=== PATIENT | female | born 1990 | race Two or more races ===

== ENCOUNTER 2020-07-07 18:13 | Emergency (ER) | payer OTHER, SELFPAY ==
--- NOTE | ~2020-07-07 | XR_ITS ---
EXAMINATION: XR chest 2V EXAM DATE: 07/07/2020 18:39 INDICATION: Dyspnea X 3 days. TECHNIQUE: Frontal and lateral projections of the chest obtained and reviewed. There is no prior yohana dy for comparison. FINDINGS: The lungs are clear. There are no pleural effusions. The cardiomediastinal silhouette is within normal limits. There is no pneumothorax suspected. The bones and soft tissues are unremarkab le. IMPRESSION: Normal chest x-ray exam. Reviewed, dictated and finalized at location A. IMPRESSION: Normal chest x-ray exam.
[2020-07-07 18:16] VITALS: BP 111/62; PULSE 87; RESP 17; TEMP 36; O2SAT 100
--- NOTE | 2020-07-07 18:19 | ECG_ITS ---
Measurements Intervals [place] Rate: 92 P: 45 [place]: 141 QRS: 20 QRSD: 83 T: 12 QT: 336 QTc: 416 Interpretive Statements SINUS RHYTHM BASELINE ARTIFACT- I, II, III, AVL, AVF, V4-V6 NORMAL ECG Electronically Signed On 07-07-2020 20:01:39 CDT by Joe Navas D.O.
[2020-07-07 19:33] VITALS: O2SAT 100
[2020-07-07 19:34] VITALS: BP 95/56; PULSE 87; RESP 16; O2SAT 100
[2020-07-07 19:51] VITALS: BP 101/64
[2020-07-07 20:50] LABS: Basophils Percent Auto 0.3 % (0.2-1.2); Eosinophils Absolute Auto 0.1 K/mm3 (0-0.3); Eosinophils Percent Auto 1.5 % (0-4.4); Hematocrit 31.4 % (37.0-47.0); Hemoglobin 10.5 g/dL (12.0-15.0); Immature Granulocyte Absolute 0.29 K/mm3 (0.00-0.031); Immature Granulocyte Percent A 3.2 % (0-0.5); Lymphocytes Absolute Auto 2.15 K/mm3 (0.9-3.2); Lymphocytes Percent Auto 23.6 % (18.3-44.2); Mean Corpuscular HGB Conc 33.4 g/dl (32-36); Mean Corpuscular Hemoglobin 30.1 pg (26-34); Mean Platelet Volume 11.1 fl (7.4-10.4); Monocytes Absolute Auto 0.7 K/mm3 (0.1-0.6); Monocytes Percent Auto 7.4 % (2.6-8.5); Neutrophils Absolute Auto 5.8 K/mm3 (1.3-6.7); Platelet Count Result 155 k/mm3 (150-375); Red Blood Count 3.49 M/mm3 (4.2-5.4); Red Cell Distribution Width 13.4 % (11.5-14.5); White Blood Count 9.1 K/mm3 (4.5-10.0)
[2020-07-07 20:59] VITALS: BP 107/60; PULSE 78; RESP 18; O2SAT 100
[2020-07-07 20:59] LABS: Alanine Aminotransferase 24 U/L (4-35); Albumin Level 3.6 g/dL (3.5-5.1); Alkaline Phosphatase 70 U/L (38-126); Anion Gap 3 mmol/L (8-16); Aspartate Amino Transferase 26 U/L (14-36); Bilirubin,Total 0.2 mg/dL (0.2-1.3); Blood Urea Nitrogen 6 mg/dL (7-17); Calcium 8.9 mg/dL (8.4-10.2); Carbon Dioxide 26 mmol/L (22-30); Chloride 104 mmol/L (98-107); Estimated CRCL calculation 122 ml/min; Estimated Glomerular Filt Rate > 60; Glucose 110 mg/dL (65-105); Potassium 3.2 mmol/L (3.4-5.0); Sodium 133 mmol/L (137-145)
[2020-07-07 21:02] LABS: D Dimer 0.34 ug/mL (<0.48)
[2020-07-07 21:11] LABS: Troponin I < 0.012 ng/mL (0.000-0.034)
--- NOTE | 2020-07-07 21:28 | ED.GENADULT ---
HPI - General Adult General Chief complaint: Shortness of Breath/Dyspnea Stated complaint: SOB x couple of days Time Seen by Provider: 07/07/20 19:53 History of Present Illness HPI narrative: Patient is a 30-year-old female who presents the emergency department with chief complaint of shortness of breath. Patient reports she is 20 weeks and over the last several days she has had a little bit of a cough and also reports that she has had where she feels like she is not getting a good deep breath. Patient denies fever denies chills patient states that she has not had a productive cough with this the patient states that she was concerned because she is currently . Related Data Home Medications Medication Instructions Recorded Confirmed No Home Medications 07/07/20 07/07/20 Allergies Allergy/AdvReac Type Severity Reaction Status Date / Time No Known Allergies Allergy Verified 07/07/20 18:15 Review of Systems Review of Systems: Narrative: A 10 system review of systems was completed on the patient and is negative except for what is stated in the HPI. Nursing and ancillary documentation was reviewed. [facility] Social History Social History Gender identity (if verbalized by the patient): Female Comments Patient denies significant past medical history denies history of clotting disease Social history the patient denies smoking or illicit drug use Exam Narrative: Exam Narrative: GENERAL: Well-appearing, well-nourished, and in no acute distress. HEAD: Normocephalic, atraumatic. EYES: PERRLA and EOMI. ENT: Nares clear, no rhinorrhea or epistaxis. Mucous membranes moist. NECK: Supple. CHEST: Clear to auscultation. No respiratory distress. HEART: Regular rate and rhythm. No murmur heard. Normal peripheral pulses. ABDOMEN: Soft, nontender, nondistended, normal active bowel sounds. EXTREMITIES: Normal range of motion. No edema. SKIN: Warm, dry, no rash. NEURO: No focal deficits. Alert and oriented x3. PSYCH: Normal mood and affect. Course Vital Signs Vital signs: Vital Signs Temperature 36.0 C L 07/07/20 18:16 Pulse Rate 87 07/07/20 18:16 Respiratory Rate 17 07/07/20 18:16 Blood Pressure 111/62 07/07/20 18:16 Pulse Oximetry 100 07/07/20 18:16 Temperature 36.0 C L 07/07/20 18:16 Pulse Rate 78 07/07/20 20:59 Respiratory Rate 18 07/07/20 20:59 Blood Pressure 107/60 07/07/20 20:59 Pulse Oximetry 100 07/07/20 20:59 Medical Decision Making Vital Signs Vital Signs: Vital Signs Temperature 36.0 C L 07/07/20 18:16 Pulse Rate 87 07/07/20 18:16 Respiratory Rate 17 07/07/20 18:16 Blood Pressure 111/62 07/07/20 18:16 Pulse Oximetry 100 07/07/20 18:16 Temperature 36.0 C L 07/07/20 18:16 Pulse Rate 78 07/07/20 20:59 Respiratory Rate 18 07/07/20 20:59 Blood Pressure 107/60 07/07/20 20:59 Pulse Oximetry 100 07/07/20 20:59 Lab Data Result diagrams: 07/07/20 20:44 07/07/20 20:44 Labs: Lab Results 07/07/20 07/07/20 07/07/20 Range/Units 20:44 20:44 20:44 WBC 9.1 (4.5-10.0) K/mm3 RBC 3.49 L (4.2-5.4) M/mm3 Hgb 10.5 L (12.0-15.0) g/dL Hct 31.4 L (37.0-47.0) % MCV 90.0 (80-100) fl MCH 30.1 (26-34) pg MCHC 33.4 (32-36) g/dl RDW 13.4 (11.5-14.5) % Plt Count 155 (150-375) k/mm3 MPV 11.1 H (7.4-10.4) fl Immature Gran % (Auto) 3.2 H (0-0.5) % Neut % (Auto) 64.0 (45.5-73.1) % Lymph % (Auto) 23.6 (18.3-44.2) % [place] % (Auto) 7.4 (2.6-8.5) % Eos % (Auto) 1.5 (0-4.4) % Baso % (Auto) 0.3 (0.2-1.2) % Lymph # (Auto) 2.15 (0.9-3.2) K/mm3 [place] # (Auto) 0.7 H (0.1-0.6) K/mm3 Eos # (Auto) 0.1 (0-0.3) K/mm3 Baso # (Auto) 0.0 (0.0-0.1) K/mm3 Abs Immat Gran (auto) 0.29 H (0.00-0.031) K/mm3 Absolute Neuts (auto) 5.8 (1.3-6.7) K/mm3 Absolute Nucleated RBC 0.0 (0.0-0.012) K/mm3 Nucleated RBC % 0.0
[2020-07-07 21:43] VITALS: BP 102/62; PULSE 86; RESP 20; O2SAT 99
== END 2020-07-07 21:43 | disposition home or self-care (01) ==
PROVIDERS: Emergency Provider Emergency Medicine
DX: R06.00 Dyspnea, unspecified (principal)
CPT/HCPCS: 36415; 71046; 80053; 84484; 85025; 85380; 93005; 99284

== ENCOUNTER 2020-08-23 09:00 | Outpatient (RCR) | payer OTHER, SELFPAY ==
[2020-08-23] MEDS: RHO(D) IMMUNE GLOBULIN 300 MCG/2 ML SYRINGE IM (09:51)
== END 2020-11-19 23:59 | disposition home or self-care (01) ==
LOC: ANHLAB 09:00
PROVIDERS: Visit Provider Student in an Organized Health Care Education/Training Program
DX: Z29.13 Encounter for prophylactic Rho(D) immune globulin (principal); O36.0190 Maternal care for anti-D [Rh] antibodies, unspecified trimester, not applicable or unspecified; Z3A.00 Weeks of gestation of pregnancy not specified
CPT/HCPCS: 36415; 85461; 90384; 96372; J2790

== ENCOUNTER 2020-11-09 02:39 | Inpatient (IN) | payer OTHER, SELFPAY ==
[2020-11-09] VITALS (14 sets, daily range): BP systolic 84–121; BP diastolic 49–86; PULSE 62–89; RESP 14–18; TEMP 36.6–37.2; O2SAT 96–100; BMI 25.4
[2020-11-09] MEDS: OXYTOCIN 30 UNITS/NS 500 ML 30 UNITS/500 ML BAG 125 UNITS IV CONT ×2 (03:07→03:51)
[2020-11-09] MEDS: LACTATED RINGERS 1,000 ML 125 ML IV CONT (03:08)
[2020-11-09 03:23] LABS: Basophils Percent Auto 0.2 % (0.2-1.2); Eosinophils Percent Auto 0.2 % (0-4.4); Hematocrit 34.9 % (37.0-47.0); Immature Granulocyte Absolute 0.05 K/mm3 (0.00-0.031); Immature Granulocyte Percent A 0.6 % (0-0.5); Lymphocytes Absolute Auto 1.79 K/mm3 (0.9-3.2); Lymphocytes Percent Auto 20.6 % (18.3-44.2); Mean Corpuscular HGB Conc 34.4 g/dl (32-36); Mean Corpuscular Hemoglobin 30.4 pg (26-34); Mean Corpuscular Volume 88.4 fl (80-100); Mean Platelet Volume 12.2 fl (7.4-10.4); Monocytes Absolute Auto 0.6 K/mm3 (0.1-0.6); Monocytes Percent Auto 6.7 % (2.6-8.5); Neutrophils Absolute Auto 6.2 K/mm3 (1.3-6.7); Neutrophils Percent Auto 71.7 % (45.5-73.1); Platelet Count Result 130 k/mm3 (150-375); Red Blood Count 3.95 M/mm3 (4.2-5.4); Red Cell Distribution Width 13.2 % (11.5-14.5); White Blood Count 8.7 K/mm3 (4.5-10.0)
--- NOTE | 2020-11-09 03:51 | P.HP_ITS ---
Obstetrics - Admit Note Admission Note: record reviewed. Additions to the history and/or subsequent changes in the physical findings follow. 30 y/o at 39 4/7 weeks who began to have contractions at midnight. She arrived here by ambulance with complete dilation of the cervix. I was called promptly at 0248. She subsequently had SROM of meconium-stained fluid. complicated by refusal of GCT, but she did have normal accuchecks. Rh neg, has received Rhogam. Studying [place] [employer] and [employer] at [employer]. AVSS NST: FHR present on a 10 min tracing TOCO contractions every 1 min A: IUP at term with labor P: See delivery note.
--- NOTE | 2020-11-09 03:56 | P.PCNOB_ITS ---
OB - Delivery Note Procedure Delivery date: 11/09/20 Procedure: , repair of laceration Induction method: none Delivery monitor: external FHT and external uterine Route of delivery: Laceration Description: Periurethral (right) and Perineal - 2nd Degree Delivery repair: vicryl (3-0) Specimen: Yes (cord blood, placenta) Quantitative Blood Loss (ml): 200 Anesthesia type: Local (1% lidocaine) Disposition: PACU Complications: None Narrative: 30 y/o at 39 4/7 weeks gestation who presented to the hospital via EMS with contractions, with complete dilation of the cervix. She had SROM of meconium-stained fluid and delivered precipitously. A loose nuchal cord was reduced and the body delivered. Cord blood was collected. The placenta delivered spontaneously and was grossly normal in appearance. The usual 3 vessel cord was noted. A second degree midline perineal and a right- sided periurethral laceration were sustained. These were infiltrated with a total of 14 mL of 1% lidocaine and reapproximated using 3 0 Vicryl in the usual layered fashion. Excellent hemostasis resulted as did excellent reapproximation of the normal anatomy. Needle and instrument counts were correct. The patient was taken to the recovery room in stable condition. The infant went to the nursery in stable condition. The patient was disappointed that she would not be allowed to keep the placenta. [place] Baby Date of : 11/09/20 Time of : 02:58 Weeks of gestation at delivery: 39 Infant gender: Female Weight (pounds): 7 Weight (ounces): 13 presentation: vertex Placenta delivery description: Spontaneous and Normal Configuration cord vessel description: 3 Vessels and Nuchal Cord score one minute: 8 score five minutes: 9
--- NOTE | 2020-11-09 04:03 | PM.OBDSVD ---
DS: Admitting Diagnosis Discharge Date 11/10/20 Admitting Diagnosis IUP at term Labor DS: Discharge Diagnosis Discharge Diagnosis (1) (normal spontaneous vaginal delivery): Code(s): O80 - Encounter for full-term uncomplicated delivery Status: Acute OB - DS: Summary OB Procedures : None OB Procedures Intrapartum: Spontaneous Vag Delivery OB Procedures: : None DS: Data Data Completed and Pending Pending studies at discharge: Pending at discharge 11/09/20 03:36 Surgical [PTH] Routine Labs on day of discharge: Labs from last 24 hours 11/09/20 11/09/20 03:12 03:12 WBC 8.7 RBC 3.95 L Hgb 12.0 Hct 34.9 L MCV 88.4 MCH 30.4 MCHC 34.4 RDW 13.2 Plt Count 130 L MPV 12.2 H Immature Gran % (Auto) 0.6 H Neut % (Auto) 71.7 Lymph % (Auto) 20.6 [place] % (Auto) 6.7 Eos % (Auto) 0.2 Baso % (Auto) 0.2 Lymph # (Auto) 1.79 [place] # (Auto) 0.6 Eos # (Auto) 0.0 Baso # (Auto) 0.0 Abs Immat Gran (auto) 0.05 H Absolute Neuts (auto) 6.2 Absolute Nucleated RBC 0.0 Nucleated RBC % 0.0 RPR Pending Discharge Plan Discharge Attending physician on discharge: Tye Medley Discharging Clinician: Chava King Patient Disposition: Home, Self-Care Activity: pelvic rest Diet: regular Discharge Instructions: Education: Mom and Baby Guide Given to: Mother Follow-Up: Call your delivering provider's office for an appointment to be seen in: 6 Weeks Mom and baby should come to the [facility] for the follow-up appointment. Appointment Date/Time: Friday, November 13, 2020 at 11:00 am What to expect at your follow-up visit: Blood Pressure Check Physical Assessment Call [phone] if you are unable to keep your appointment time. BREAST CARE: * Wear a snug supportive bra. * For engorgement discomfort: Breast Feeding: * Apply warm moist washcloths * Express milk as needed to relieve engorgement * Wear loose clothing * For sore nipples: * Identify correct latch-on * Apply warm moist washcloths before and after nursing * Air dry nipples after nursing * May apply Lansinoh cream to nipples EPISIOTOMY/PERINEAL CARE: * Until bleeding stops, use your reid bottle after urinating * Change your pad frequently throughout the day * You may take sitz baths several times a day (fill your bathtub with warm water and soak for 20 minutes.) Do NOT bathe in the water * No tub baths until seen by your physician - You may shower ACTIVITY: * Rest as much as possible. * Do not exercise or lift anything heavier than your baby (such as laundry or other children.) * Avoid stairs or driving as much as possible. * Do not put anything into the vagina. No douching, tampons, or sexual activity until seen by physician. NOTIFY PHYSICIAN IF YOU HAVE ANY QUESTIONS OR IF ANY OF THE FOLLOWING SYMPTOMS OCCUR: * If your vaginal area becomes red, swollen, or more painful than what you have experienced in the hospital. * If your vaginal bleeding becomes foul smelling. * If your vaginal bleeding becomes more heavy than a period or if your bleeding changes from pink to bright red. However, you may pass an occasional walnut-sized clot once or twice for the first week . * If you experience a sharp, shooting pain in your calves. * If you discover a hard, reddened area on your breast or if you experience flu-like symptoms. DIET: * Eat regular, well-balanced meals. * Drink plenty of fluids daily. If , drink to thirst. Call or return if temperature above 100.4? F, increased abdominal pain, increased vaginal bleeding or any new problems. Stand Alone Forms: General Discharge Information Follow-up/Referrals: Tye Medley MD [Physician] - 6 Weeks Discharge Medications: New ibuprofen 600 mg tablet 600 mg PO Q6H PRN (Reason: c
[2020-11-09 05:10] LABS: HIV 1/2 Ab P24 Ag Result Negative (Negative)
[2020-11-09 07:03] LABS: Amphetamine Screen Urine Negative (Negative); Barbiturate Screen Urine Negative (Negative); Benzodiazepines Screen Urine Negative (Negative); Cannabinoid Screen Urine Negative (Negative); Cocaine Screen Urine Negative (Negative); Methadone Screen Urine Negative (Negative); Opiate Screen Urine Negative (Negative); Phencyclidine Screen Urine Negative (Negative)
[2020-11-09] MEDS: MULTIVIT/MIN/PREN/FOL AC/IRON TABLET 1 TAB PO (07:17)
[2020-11-09] MEDS: DOCUSATE SODIUM 100 MG CAPSULE PO ×2 (07:17→15:55)
[2020-11-09] MEDS: IBUPROFEN 600 MG TABLET PO ×2 (07:17→15:56)
[2020-11-09 08:52] LABS: Rapid Plasma Reagin Non-Reactive (NonReactive)
--- NOTE | 2020-11-09 10:30 | PC.NURSE ---
consult with pt., mother has to breast upon entering. Mother reports tenderness with feeding more to right than left. Reviewed feeding cues, frequencies, duration of feedings, feeding elimination flow sheet, and signs of adequate intake. Demonstrated stimulation techniques to wake for feeding. Assisted with to breast. Reviewed positioning/alignment in football, holding breast in ?C? hold and guided asymmetrical latch on. Reviewed rational for each. Infant nursed eagerly with steady draws and occasional swallowing noted, some pausing noted. Reviewed signs of a correct latch, effective nursing and suck swallow ratio. Suggested mother stimulate while feeding to increase stimulate, increase intake and to assist with maintaining deep latch. would slip to shallow latch causing tenderness. Demonstrated how to adjust latch more deeply while feeding if needed. Mother reports she can feel the difference in latch with no/less tenderness. Nipple care Reviewed of lanolin after feedings, warm compresses as needed. Instructed mother to call out for RN assistance if she is unable to latch infant for feeding or she has discomfort with nursing. Instructed feeding should be initiated three hours from start of last feeding or if feeding cues are noted before. Mother voiced understanding of information shared. Mother is feeding as required and waking infant to feed if needed. Mother states she feels confident to continue effective at home. Mother reports first child for several months, now 5 years old. Reviewed transition to breast milk, signs of adequate intake, and engorgement/relief. Instructed to call ICP if intake/output less than required. Reviewed regular medications mother is taking. Information provided per [place]. Reviewed community
[2020-11-09] MEDS: ACETAMINOPHEN 325 MG TABLET 650 MG PO (12:45)
[2020-11-10] VITALS: BP 91/59; PULSE 75; RESP 18; TEMP 36.7; O2SAT 97
[2020-11-10 04:43] LABS: Hematocrit 31.4 % (37.0-47.0); Hemoglobin 10.4 g/dL (12.0-15.0)
[2020-11-10 09:00] VITALS: BP 102/60; PULSE 72; PULSE 75; RESP 16; RESP 18; TEMP 36.7; O2SAT 97; O2SAT 98
--- NOTE | 2020-11-10 10:18 | PM.OBPNVD ---
OB - PN: Subj Subjective Date/time seen: 11/10/20 10:18 Narrative: Pain OK. Would like to go home. OB - PN: Obj Data Labs CBC & Chem 7: 11/10/20 03:51 Labs: Laboratory Results - last 24 hr 11/10/20 03:51 Hgb 10.4 L Hct 31.4 L OB - PN A/P Plan Comments: A: PPD#1, doing well. P: Home to f/u 6 weeks. Exam Psych: Other: AVSS ABD soft, nontender, fundus firm EXT nontender
[2020-11-10] MEDS: MULTIVIT/MIN/PREN/FOL AC/IRON TABLET 1 TAB PO (12:27)
[2020-11-10] MEDS: DOCUSATE SODIUM 100 MG CAPSULE PO (12:27)
[2020-11-10] MEDS: IBUPROFEN 600 MG TABLET PO (12:27)
[2020-11-13 10:44] VITALS: BP 104/73; PULSE 81; RESP 20; TEMP 37.1; O2SAT 99
--- NOTE | 2020-11-20 15:20 | PC.NURSE ---
Pt. called to schedule a Apt., for Thursday at 1000, pt was a no show. Pt. called and stated she overslept and will call later to reschedule. Mother states she is having issues with latch, she is currently bottle feeding.
== END 2020-11-10 15:12 | disposition home or self-care (01) | DRG 560 ==
LOC: ANHLDR 05:30 → ANHOB2 11-10 11:45 → ANHLDR 11-13 09:38 → ANHOB2 11-13 09:38
PROVIDERS: Admitting Provider Obstetrics & Gynecology; Visit Provider Obstetrics & Gynecology
DX: O77.0 Labor and delivery complicated by meconium in amniotic fluid (principal); O70.1 Second degree perineal laceration during delivery; O71.82 Other specified trauma to perineum and vulva; O62.3 Precipitate labor; Z3A.39 39 weeks gestation of pregnancy; Z37.0 Single live birth
CPT/HCPCS: 36415; 80307; 85014; 85018; 85025; 86592; 86703; 86850; 86900; 86901; 88307; A9270; G0432; J2590; J7120

== ENCOUNTER 2022-01-14 11:54 | Outpatient (CLI) | payer OTHER, SELFPAY ==
[2022-01-14 13:02] LABS: Hepatitis B Surface Antigen Negative (Negative)
[2022-01-14 13:08] LABS: HAV RESULT Negative (Negative); Hepatitis B Core IgM Result Negative (Negative)
[2022-01-14 13:11] LABS: HIV 1/2 Ab P24 Ag Result Negative (Negative)
[2022-01-14 13:20] LABS: Hepatitis C Virus Antibody Negative (Negative)
[2022-01-14 14:47] LABS: Rapid Plasma Reagin Non-Reactive (NonReactive)
== END 2022-01-14 11:55 | disposition home or self-care (01) ==
LOC: ANHLAB 11:56
PROVIDERS: Visit Provider Student in an Organized Health Care Education/Training Program
DX: Z20.2 Contact with and (suspected) exposure to infections with a predominantly sexual mode of transmission (principal); Z11.3 Encounter for screening for infections with a predominantly sexual mode of transmission
CPT/HCPCS: 36415; 80074; 86592; 86695; 86696; 86703; G0432